=== PATIENT | male | born 1980 | race Caucasian/White ===

== ENCOUNTER → 2020-04-24 | Outpatient (CLI) | payer BC ==
[~2020-04-24] MED LIST: ZESTRIL 5MG5 MG PO
== END ==
LOC: COL.RAD 08:54
DX: M67.824 Other specified disorders of tendon, left elbow (principal)

== ENCOUNTER → 2020-08-22 | Outpatient (CLI) | payer BC | LOC: COL.RAD 14:17 | DX: M25.522 Pain in left elbow (principal) ==